=== PATIENT | female | born 1995 | race Caucasian/White ===

== ENCOUNTER 2021-08-27 11:41 | Emergency (ER) | payer BC ==
[2021-08-27] MEDS ORDERED: Lidocaine 1% 10 ML MDV INJECT ONE (11:59)
--- NOTE | 2021-08-27 12:28 | EDM.PDOC ---
ED HPI GENERAL MEDICAL PROBLEM - General Chief Complaint: ENT Problem Stated Complaint: TOOTH FELL OUT Time Seen by Provider: 08/27/21 11:45 Source of Information: Reports: Patient, RN Notes Reviewed History Limitations: Reports: No Limitations ( ) - History of Present Illness INITIAL COMMENTS - FREE TEXT/NARRATIVE: Patient is a 26-year-old female presenting to the emergency department with complaints of dental avulsion and laceration to her lip. Patient reports that her dog jumped up on her and hit her lip. Reports lower tooth went through the bottom lip. She is up-to-date on her tetanus vaccination. Oral/Mouth Pain Score (Numeric/FACES): 2 - Related Data Allergies Allergy/AdvReac Type Severity Reaction Status Date / Time No Known Allergies Allergy Verified 08/27/21 11:58 Home Meds: Home Meds Ethinyl Estradiol/Drospirenone [Drospirenone-Ee 3-0.02 mg Tab] 1 dose PO DAILY 08/27/21 [History] Past Medical History - Past Health History Medical/Surgical History: Denies Medical/Surgical History Social & Family History - Tobacco Use Tobacco Use Status *Q: Never Tobacco User Second Hand Smoke Exposure: No - Caffeine Use Caffeine Use: Reports: Coffee, Energy Drinks, Soda - Recreational Drug Use Recreational Drug Use: No ED ROS ENT - Review of Systems Review Of Systems: Comprehensive ROS is negative, except as noted in HPI. ED EXAM, ENT - Physical Exam Exam: See Below Exam Limited By: No Limitations General Appearance: Alert, WD/WN, No Apparent Distress Mouth/Throat: Other (Tooth 25 completely avulsed. Root intact. 1 cm nongaping laceration below lower lip. No active bleeding.) Respiratory/Chest: No Respiratory Distress, Lungs Clear, Normal Breath Sounds, No Accessory Muscle Use, Chest Non-Tender Cardiovascular: Normal Peripheral Pulses, Regular Rate, Rhythm, No Edema, No Gallop, No JVD, No Murmur, No Rub Neurological: Alert, Oriented, CN II-XII Intact, Normal Cognition, Normal Gait, Normal Reflexes, No Motor/Sensory Deficits Psychiatric: Normal Affect, Normal Mood Skin: Warm, Dry, Intact, Normal Color, No Rash ED ENT PROCEDURES - Laceration/Wound Repair lower lip Lac/wound length in cm: 1 Appearance: Subcutaneous Anesthetic Type: Local Local Anesthesia - Lidocaine (Xylocaine): 1% Plain Skin Prep: Providone-Iodine (Betadine), Saline, Sterile Drape Exploration/Debridement/Repair: Wound Explored, No Foreign Material Found Suture Size: 6-0 # of Sutures: 2 Suture Type: Nylon Sterile Dressing Applied: None Tetanus Status Addressed: Yes Complications: None Course - Vital Signs Last Recorded V/S: Last Vital Signs Temp 96.9 F 08/27/21 11:56 Pulse 100 08/27/21 11:56 Resp 19 08/27/21 11:56 BP 136/91 H 08/27/21 11:56 Pulse Ox 100 08/27/21 11:56 - Orders/Labs/Meds Meds: Medications Discontinued Medications Generic Name Dose Route Start Last Admin Trade Name Freq PRN Reason Stop Dose Admin Lidocaine HCl 10 ml 08/27/21 11:59 08/27/21 12:04 Lidocaine 1% 10 Ml Mdv INJECT 08/27/21 12:00 10 ml ONETIME ONE Administration - Re-Assessments/Exams Free Text/Narrative Re-Assessment/Exam: Pt is a 26 year old female presenting to the ER with c/o avulsion of tooth 25 and laceration to lower lip. Pt reports her dog jumped up on her and hit her in the mouth. Tooth was soaked in sterile saline and reimplanted by Dr. Zamudio. External laceration closed with sutures. See procedure notes. Recommend pt followup with dentist tomorrow. Discharge instructions as documented. Departure - Departure Time of Disposition: 12:28 Disposition: Home, Self-Care 01 Condition: Good Clinical Impression: Laceration Dental trauma Qualifiers: Encounter type: initial encounter Qualified Code(s): S09.93XA - Unspecified injury of face, initial encounter - Discharge Information *PRESCRIPTION DRUG MONITORING PROGRAM REVIEWED*: No *COPY OF PRESCRIPTION DRUG MONITORING REPORT IN PATIENT JOHN: No Instructions: Tooth Displacement, Laceration Care, Adult Referrals: PCP,None [Primary Care Provider] - Forms: ED Department Discharge Additional Instructions: You were seen in the emergency department today for a laceration to your lower lip and avulsion of your lower tooth. The wound was cleansed and closed with 2 sutures. The tooth was reimplanted. Sutures should stay intact for 3-5 days. After that time they may be removed in the clinic by a nurse. Keep the wound clean and dry. Wash with normal soap and water twice daily. Do not submerge the wound in water. Watch for signs of infection including increased redness, swelling, or purulent drainage. If these should occur, you should be seen either in the clinic or in the emergency department as antibiotic treatment may be needed. Follow-up with your dentist tomorrow. Do not bite anything with your front teeth until cleared by dentist. Return to the ER as needed. Sepsis Event Note (ED) - Focused Exam Vital Signs: Vital Signs Temp Pulse Resp BP Pulse Ox 08/27/21 11:56 96.9 F 100 19 136/91 H 100
== END 2021-08-27 12:38 | disposition home or self-care (01) ==
LOC: JD.ED 11:41
DX: S01.511A Laceration without foreign body of lip, initial encounter (principal); S03.2XXA Dislocation of tooth, initial encounter; W54.1XXA Struck by dog, initial encounter
CPT/HCPCS: 12011; 99282-25